=== PATIENT | female | born 1970 | race Caucasian/White ===

== ENCOUNTER 2022-02-16 08:37 | Outpatient (CLI) | payer OTHER | END 2022-02-16 14:07 | disposition home or self-care (01) | LOC: LAB 08:37 | PROVIDERS: ATTEND Obstetrics & Gynecology | DX: I10 Essential (primary) hypertension (principal); E03.9 Hypothyroidism, unspecified; N39.0 Urinary tract infection, site not specified; E78.2 Mixed hyperlipidemia; Z00.00 Encounter for general adult medical examination without abnormal findings; Z21 Asymptomatic human immunodeficiency virus [HIV] infection status; R79.9 Abnormal finding of blood chemistry, unspecified; R79.89 Other specified abnormal findings of blood chemistry ==

== ENCOUNTER 2022-02-16 08:54 | Outpatient (CLI) | payer OTHER | END 2022-02-16 09:06 | disposition home or self-care (01) | LOC: MAMO-SONO 08:54 | PROVIDERS: ATTEND Obstetrics & Gynecology | DX: R10.2 Pelvic and perineal pain (principal); N94.89 Other specified conditions associated with female genital organs and menstrual cycle; N63.0 Unspecified lump in unspecified breast; N64.59 Other signs and symptoms in breast; N64.9 Disorder of breast, unspecified; N94.0 Mittelschmerz ==

== ENCOUNTER 2022-02-16 10:33 | Outpatient (CLI) | payer OTHER | END 2022-02-16 10:35 | disposition home or self-care (01) | LOC: NUCLEAR 10:33 | PROVIDERS: ATTEND Obstetrics & Gynecology | DX: M81.0 Age-related osteoporosis without current pathological fracture (principal) ==

== ENCOUNTER 2022-11-25 08:32 | Outpatient (CLI) | payer OTHER | END 2022-11-25 08:58 | disposition home or self-care (01) | LOC: RAD 08:32 | PROVIDERS: ATTEND Internal Medicine Cardiovascular Disease | DX: R10.9 Unspecified abdominal pain (principal) ==

== ENCOUNTER 2024-08-15 08:00 | Outpatient (CLI) | payer OTHER ==
[2024-08-15 09:31] LABS: HEMATOCRIT 44.2 % (36.0-45.00); HEMOGLOBIN 14.7 g/dL (12.0-15.00); MEAN CELL VOLUME 93.2 fL (80.00-100.00); MEAN CORPUSCULAR HGB CONC 33.2 g/dl (32.0-36.0); PLATELET COUNT 274 K/uL (150-450); RED BLOOD COUNT 4.74 M/uL (4.00-6.00); RED CELL DISTRIBUTION WIDTH 13.2 % (11.5-14.5)
[2024-08-15 10:01] LABS: PH,URINE 5.5 (5.0-8.0); URINE APPEARANCE Clear; URINE BILIRRUBIN Negative (NEGATIVE); URINE BLOOD Negative; URINE COLOR Yellow; URINE GLUCOSE Negative (NEGATIVE); URINE KETONE Negative (NEGATIVE); URINE LEUKOCYTE Negative; URINE NITRATE Negative; URINE PROTEIN Negative (NEGATIVE); URINE UROBILINOGEN 0.2 E.U./dl
[2024-08-15 10:08] LABS: CHOL HDL RATIO 3.4 (0-5.0)
[2024-08-15 10:08] LABS: URINE BACTERIA 304.8 uL (0.0-1933); URINE EPITHELIAL CELLS 11.4 uL (0.0-38.8); URINE WBC 7.8 uL (0.0-23.2)
[2024-08-15 10:15] LABS: ALBUMIN 4.1 gm/dL (3.4-5.0); BILIRUBIN TOTAL 0.6 mg/dL (0.3-1.2); CALCIUM 9.9 mg/dL (8.5-10.1); CREATININE SERUM 0.84 mg/dL (0.55-1.02); GFR 70.39; GLOBULINA 3.7 G/DL (2.4-3.5); POTASSIUM 5.5 mEq/L (3.5-5.1); T4 TOTAL 11.89 UG/DL (4.8-13.9); TOTAL PROTEIN 7.8 gm/dL (6.4-8.2); TSH 1.33 uIU/mL (0.358-3.74)
== END 2024-08-15 08:10 | disposition home or self-care (01) ==
LOC: LAB 08:00
PROVIDERS: ATTEND Internal Medicine Cardiovascular Disease
DX: E03.9 Hypothyroidism, unspecified (principal); I10 Essential (primary) hypertension; E11.9 Type 2 diabetes mellitus without complications; E78.2 Mixed hyperlipidemia